=== PATIENT | female | born 2000 | race Caucasian/White ===

== ENCOUNTER 2022-02-16 21:15 | Emergency (ER) | payer OTHER ==
[~2022-02-16] VITALS: Ht 165.1 cm; Wt 77.0 kg
--- NOTE | 2022-02-17 04:28 | NUR ---
PT ROOMED IN BED 9.
[2022-02-17] MEDS: TETanus/Pertussis (Acell)/Diphther VAC/PF (Tdap-Adult) 0.5ml syringe IMVAC ONE (04:56)
[2022-02-17] MEDS: bacitracin 15gm ointment TP ONE (04:58)
[2022-02-17 05:04] VITALS: BP 125/80
== END 2022-02-17 05:10 | disposition home or self-care (01) ==
LOC: ER 21:17
DX: S81.811A Laceration without foreign body, right lower leg, initial encounter (principal); X58.XXXA Exposure to other specified factors, initial encounter; Y93.89 Activity, other specified; Y92.89 Other specified places as the place of occurrence of the external cause; Y99.8 Other external cause status
CPT/HCPCS: 12002; 90471; 90715; 99283; A6449